=== PATIENT | female | born 1980 | race American Indian/Alaskan Native ===

== ENCOUNTER 2021-01-25 08:02 | Outpatient (CLI) | payer OTHER | END 2021-01-25 09:17 | disposition home or self-care (01) | LOC: NST 08:02 | PROVIDERS: ATTEND Obstetrics & Gynecology Maternal & Fetal Medicine | DX: O30.003 Twin pregnancy, unspecified number of placenta and unspecified number of amniotic sacs, third trimester (principal) ==

== ENCOUNTER 2021-02-22 08:12 | Outpatient (CLI) | payer OTHER | END 2021-02-22 09:20 | disposition home or self-care (01) | LOC: NST 08:12 | PROVIDERS: ATTEND Obstetrics & Gynecology | DX: Z34.83 Encounter for supervision of other normal pregnancy, third trimester (principal) ==

== ENCOUNTER 2021-03-07 14:46 | Outpatient (CLI) | payer OTHER | END 2021-03-07 16:24 | disposition home or self-care (01) | LOC: NST 14:46 | PROVIDERS: ATTEND Obstetrics & Gynecology Maternal & Fetal Medicine | DX: Z34.83 Encounter for supervision of other normal pregnancy, third trimester (principal) ==

== ENCOUNTER 2021-03-15 10:15 | Inpatient (IN) | payer OTHER ==
[~2021-03-15] VITALS: Ht 167.6 cm; Wt 92.1 kg
[2021-03-15] MEDS ORDERED: CHILDREN'S ASPI81 MG PO (13:25)
[2021-03-15] MEDS ORDERED: PRENATABS RX T1 EACH PO (13:26)
[2021-03-15] MEDS ORDERED: ZOVIRAX30 GM (13:27)
== END 2021-03-23 16:37 | disposition home or self-care (01) | DRG 788 ==
LOC: OB/GYN 03-21 08:10 → O/R 03-21 08:10 → OB/GYN 03-21 10:15
PROVIDERS: ADMIT Obstetrics & Gynecology; ATTEND Obstetrics & Gynecology
PROC: 4A1HXFZ Monitoring of Products of Conception, Cardiac Rhythm, External Approach (ICD-10-PCS; 2021-03-21)
PROC: 10D00Z1 Extraction of Products of Conception, Low, Open Approach (ICD-10-PCS; principal; 2021-03-21 14:00)
DX: O64.8XX2 Obstructed labor due to other malposition and malpresentation, fetus 2 (principal); O30.043 Twin pregnancy, dichorionic/diamniotic, third trimester; Z3A.37 37 weeks gestation of pregnancy; Z37.2 Twins, both liveborn